=== PATIENT | female | born 1990 | race African-American/Black ===

== ENCOUNTER 2019-04-06 18:21 | Emergency (ER) | payer MEDICAID ==
[~2019-04-06] VITALS: Ht 170.2 cm; Wt 120.0 kg
[2019-04-06] MEDS ORDERED: ALBUTEROL (0.083%) 2.5MG/3ML NEB HHN ONE (19:15)
[2019-04-06 19:47] VITALS: BP 140/87
== END 2019-04-06 19:49 | disposition home or self-care (01) ==
LOC: ER 18:21
DX: J45.909 Unspecified asthma, uncomplicated (principal); R05 Cough; R11.10 Vomiting, unspecified
CPT/HCPCS: 71045; 81025; 99283